=== PATIENT | male | born 1945 | race Caucasian/White ===

== ENCOUNTER 2017-08-10 20:41 | Inpatient (IN) | payer MEDICARE, OTHER ==
[~2017-08-10] VITALS: Ht 177.8 cm; Wt 69.9 kg
[~2017-08-10 20:41] MED LIST: AMLO10 PO; ATOR80TA PO; ENAL20TA81 PO; FISH1000 PO; HYDR-2768 PO; PREV10CA PO; VARE.5 PO; VITA-13 PO; VITA10002 PO; [UNRECOGNIZED DRUG - CODE] PO
[2017-08-10 21:41] LABS: AUTOMATED NEUTROPHIL # 10.8 TH/MM3 (1.8-7.7); BASOPHIL # 0.2 TH/MM3 (0-0.2); BASOPHIL % 1.2 % (0.0-2.0); EOSINOPHIL # 0.3 TH/MM3 (0-0.4); EOSINOPHIL % 2.2 % (0.0-4.0); HEMATOCRIT 41.1 % (39.0-51.0); HEMO FLAGS DIFF FINAL; LYMPH % 15.8 % (9.0-44.0); LYMPHOCYTE # 2.3 TH/MM3 (1.0-4.8); MEAN CELL VOLUME 92.1 FL (80.0-100.0); MEAN CORPUSCULAR HEMOGLOBIN 31.3 PG (27.0-34.0); MONO % 6.2 % (0.0-8.0); NEUT % 74.6 % (16.0-70.0); PLATELET COUNT 296 TH/MM3 (150-450); RED BLOOD COUNT 4.46 MIL/MM3 (4.50-5.90); RED CELL DISTRIBUTION WIDTH 12.8 % (11.6-17.2); WHITE BLOOD COUNT 14.5 TH/MM3 (4.0-11.0)
[2017-08-10 22:05] LABS: ANION GAP 9 MEQ/L (5-15); AST (GOT) 25 U/L (15-37); BICARBONATE 29.2 MEQ/L (21.0-32.0); BLOOD UREA NITROGEN 19 MG/DL (7-18); CHLORIDE 100 MEQ/L (98-107); GLOMERULAR FILTRATION RATE 73 ML/MIN (>89); POTASSIUM 3.4 MEQ/L (3.5-5.1); SODIUM (NA) 138 MEQ/L (136-145)
[2017-08-10 22:06] LABS: ALT (GPT) 48 U/L (12-78)
[2017-08-10 22:08] LABS: ALKALINE PHOSPHATASE 113 U/L (45-117); TOTAL BILIRUBIN ADULT 0.2 MG/DL (0.2-1.0)
[2017-08-10 23:47] LABS: BLOOD, URINE NEG (NEG); GLUCOSE,URINE NEG (NEG); KETONE, URINE NEG (NEG); NITRITE,URINE NEG (NEG); URINE COLOR LIGHT-YELLOW (YELLW/STRAW)
[2017-08-10 23:48] LABS: COMMENT (UR) CULT NOT INDICATED; CULTURE IF INDICATED CULT NOT INDICATED
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
[2017-08-11 07:30] VITALS: BP 190/102; PULSE 76; RESP 18; O2SAT 99
[2017-08-11] MEDS ORDERED: ENALAPRIL MALEATE 10 MG TAB PO ONE (08:15)
[2017-08-11 08:46] VITALS: BP 169/88; PULSE 83; RESP 18; TEMP 98.2; O2SAT 98
[2017-08-11 10:00] VITALS: BP 180/86; PULSE 76; RESP 18; O2SAT 99
[2017-08-11 14:00] VITALS: BP 178/81; PULSE 84; RESP 18; O2SAT 99
[2017-08-11 18:00] VITALS: BP 186/94; PULSE 79; RESP 18; O2SAT 98
[2017-08-11 19:57] VITALS: BP 162/84; PULSE 103; RESP 16; O2SAT 98
[2017-08-12] VITALS: BP 158/86; PULSE 87; RESP 14; O2SAT 98
[2017-08-12] MEDS ORDERED: ACETAMINOPHEN 325 MG TAB PO PRN (15:00)
[2017-08-12] MEDS ORDERED: LORazepam 0.5 MG TAB PO PRN (15:00)
[2017-08-12] MEDS ORDERED: ALUMINUM/MAGNESIUM/SIMETH 30 ML CUP PO PRN (15:00)
[2017-08-12] MEDS ORDERED: LORazepam 2 MG/ML VIAL IM PRN (15:00)
[2017-08-12] MEDS ORDERED: MAGNESIUM HYDROXIDE SUSP 30 ML CUP PO PRN (15:00)
[2017-08-12 15:30] VITALS: BP 174/79; PULSE 80; RESP 16; O2SAT 98
[2017-08-12] MEDS ORDERED: TRAZ100T6 PO (16:52)
[2017-08-12] MEDS ORDERED: ASPI81TA5 PO (16:52)
[2017-08-12] MEDS ORDERED: LISI40TA PO (16:52)
[2017-08-12] MEDS ORDERED: AMLO10TA2 PO (16:52)
[2017-08-12] MEDS ORDERED: HYDR25TA5 PO (16:52)
[2017-08-12] MEDS ORDERED: OLAN2.5T PO (16:52)
[2017-08-12] MEDS ORDERED: ATOR1TAB18 PO (16:52)
[2017-08-12] MEDS ORDERED: ZETI10TA5 PO (16:59)
[2017-08-12] MEDS ORDERED: VITA10002 PO (16:59)
[2017-08-12] MEDS ORDERED: VITA100018 PO (16:59)
[2017-08-12] MEDS ORDERED: DONE10TA7 PO (16:59)
[2017-08-12 18:02] VITALS: BP 172/98; PULSE 90; RESP 18; TEMP 97.2; O2SAT 97
[2017-08-12] MEDS: traZODone HCL 100 MG TAB PO SCH (23:02)
[2017-08-12] MEDS: LISINOPRIL 20 MG TAB PO SCH (23:02)
[2017-08-13 06:00] VITALS: BP 173/81; PULSE 77; RESP 18; TEMP 97.5; O2SAT 96
--- NOTE | 2017-08-13 08:46 | EKG ---
Date Performed: 08/12/2017 Time Performed: 17:02:36 PTAGE: 72 years EKG: Sinus rhythm MINIMAL ST DEPRESSION BORDERLINE ECG NO PREVIOUS TRACING DOCTOR: Christi Watson Interpretating Date/Time 08/13/2017 08:44:54
[2017-08-13] MEDS: CYANOCOBALAMIN 1,000 MCG TAB PO SCH (09:44)
[2017-08-13] MEDS: CHOLECALCIFEROL (VIT D3) 1000 UNIT TAB PO SCH (09:44)
[2017-08-13] MEDS: DONEPEZIL HCL 5 MG TAB PO SCH (09:44)
[2017-08-13] MEDS: HYDROCHLOROTHIAZIDE 25 MG TAB PO SCH (09:44)
[2017-08-13] MEDS: ASPIRIN 81 MG CHEW TAB PO SCH (09:44)
[2017-08-13] MEDS: EZETIMIBE 10 MG TAB PO SCH (09:54)
[2017-08-13] MEDS: ATORVASTATIN 80 MG TAB PO SCH (09:54)
[2017-08-13 10:26] LABS: ANION GAP 11 MEQ/L (5-15); BICARBONATE 26.2 MEQ/L (21.0-32.0); BLOOD UREA NITROGEN 21 MG/DL (7-18); CHLORIDE 103 MEQ/L (98-107); GLOMERULAR FILTRATION RATE 75 ML/MIN (>89); POTASSIUM 3.6 MEQ/L (3.5-5.1); SODIUM (NA) 140 MEQ/L (136-145)
[2017-08-13 10:52] LABS: HDL CHOLESTEROL 52.9 MG/DL (40.0-60.0); LDL CHOLESTEROL 103 MG/DL (0-99)
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
--- NOTE | 2017-08-13 14:19 | RADRPT ---
EXAM DATE/TIME: 08/13/2017 14:02 [facility] COMPARISON: No previous studies available for comparison. INDICATIONS : Altered mental status RADIATION DOSE: 56.35 CTDIvol (mGy) MEDICAL HISTORY : Seizures. Hypertension. Diabetes mellitus type 2. SURGICAL HISTORY : None. ENCOUNTER: Initial ACUITY: 1 day PAIN SCALE: 0/10 LOCATION: cranial TECHNIQUE: Multiple contiguous axial images were obtained of the head. Using automated exposure control and adj ustment of the mA and/or kV according to patient size, radiation dose was kept as low as reasonably a chievable to obtain optimal diagnostic quality images. DICOM format image data is available electro nically for review and comparison. FINDINGS: There is no evidence of acute cortical infarction, acute hemorrhage, mass effect or midline shift. Bi frontal atrophy is present. Cerebellar atrophy is also seen. CONCLUSION: 1. No evidence of acute intracranial pathology. No masses are identified. Cerebellar and frontal atro phy Sylvester Rodriguez MD on August 13, 2017 at 14:16 Board Certified Radiologist. This report was verified electronically.
[2017-08-13 16:17] LABS: HEMOGLOBIN A1b 2.1 %; HEMOGLOBIN Ao 84.6 %; HEMOGLOBIN LA1C 2.4 %; HEMOGLOBIN P3 5.2 %
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
[2017-08-13 18:45] VITALS: BP 139/65; PULSE 66; RESP 18; TEMP 97.8; O2SAT 98
[2017-08-13] MEDS: LISINOPRIL 20 MG TAB PO SCH (21:23)
[2017-08-13] MEDS: traZODone HCL 100 MG TAB PO SCH (21:23)
[2017-08-14 06:00] VITALS: BP 174/74; PULSE 57; RESP 18; TEMP 97.8; O2SAT 96
[2017-08-14] MEDS ORDERED: PNEUMOCOCCAL POLYVALENT INJ 25 MCG/0.5 ML SYR IM ONE (10:00)
[2017-08-14] MEDS: ASPIRIN 81 MG CHEW TAB PO SCH (10:42)
[2017-08-14] MEDS: DONEPEZIL HCL 5 MG TAB PO SCH (10:42)
[2017-08-14] MEDS: CYANOCOBALAMIN 1,000 MCG TAB PO SCH (10:42)
[2017-08-14] MEDS: EZETIMIBE 10 MG TAB PO SCH (10:42)
[2017-08-14] MEDS: CHOLECALCIFEROL (VIT D3) 1000 UNIT TAB PO SCH (10:42)
[2017-08-14] MEDS: HYDROCHLOROTHIAZIDE 25 MG TAB PO SCH (10:43)
[2017-08-14] MEDS: ATORVASTATIN 80 MG TAB PO SCH (10:43)
[2017-08-14 11:11] LABS: AUTOMATED NEUTROPHIL # 7.5 TH/MM3 (1.8-7.7); BASOPHIL # 0.1 TH/MM3 (0-0.2); BASOPHIL % 1.1 % (0.0-2.0); EOSINOPHIL # 0.4 TH/MM3 (0-0.4); EOSINOPHIL % 3.7 % (0.0-4.0); HEMATOCRIT 41.4 % (39.0-51.0); HEMO FLAGS DIFF FINAL; LYMPH % 18.3 % (9.0-44.0); MEAN CELL VOLUME 91.7 FL (80.0-100.0); MEAN CORPUSCULAR HEMOGLOBIN 31.1 PG (27.0-34.0); MEAN CORPUSCULAR HGB CONC 33.9 % (32.0-36.0); MONO % 9.8 % (0.0-8.0); NEUT % 67.1 % (16.0-70.0); PLATELET COUNT 314 TH/MM3 (150-450); RED BLOOD COUNT 4.51 MIL/MM3 (4.50-5.90); RED CELL DISTRIBUTION WIDTH 13.2 % (11.6-17.2); WHITE BLOOD COUNT 11.2 TH/MM3 (4.0-11.0)
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
--- NOTE | 2017-08-14 16:54 | PD.TTN ---
Patient Problems 1. Discharge planning 2. Medication compliance 3. Knowledge deficit 4. Lack of coping skills Progress Toward Goals Provider Present: Dr. Arnaldo Obregon Provider Input: Dr. Obregon's treatment team met to discuss patient's treatment plan, medication and discharge plan. Patient continues to be medication compliant. Patient will remain on unit until stablized. Nurse(s) Input: Patient's nurse Joanne reports patient doing well. Medication complaint, calm, cooperative, denies suicidal and homicidal ideation. Patient denies auditory and visual hallucination. Psychiatric Counselors Present: [facility] Input: Patient seen on unit. Patient presented calm, cooperative but constricted, pleasant, disorganized, affect blunted. Patient's speech was clear, disorganized. Patient is alert to date, person, place but has poor insight into his situation. Patient denies suicidal and homicidal ideation. Patient's speech was clear, and disorganized. Patient's long and short term memory appear to be affect. Patient's mood and affect appear to be congruent. Valeria Israel [facility] Aug 14, 2017 16:54
[2017-08-14 18:00] VITALS: BP 175/75; PULSE 68; RESP 17; TEMP 97.8; O2SAT 96
[2017-08-14] MEDS: LISINOPRIL 20 MG TAB PO SCH (21:23)
[2017-08-14] MEDS: traZODone HCL 100 MG TAB PO SCH (21:23)
[2017-08-15 06:08] VITALS: BP 125/60; PULSE 59; RESP 15; TEMP 98.2; O2SAT 94
[2017-08-15] MEDS: CHOLECALCIFEROL (VIT D3) 1000 UNIT TAB PO SCH (09:15)
[2017-08-15] MEDS: EZETIMIBE 10 MG TAB PO SCH (09:15)
[2017-08-15] MEDS: ASPIRIN 81 MG CHEW TAB PO SCH (09:15)
[2017-08-15] MEDS: ATORVASTATIN 80 MG TAB PO SCH (09:16)
[2017-08-15] MEDS: DONEPEZIL HCL 5 MG TAB PO SCH (09:16)
[2017-08-15] MEDS: HYDROCHLOROTHIAZIDE 25 MG TAB PO SCH (09:16)
[2017-08-15] MEDS: CYANOCOBALAMIN 1,000 MCG TAB PO SCH (09:16)
[2017-08-15 18:06] VITALS: BP 136/63; PULSE 56; RESP 16; TEMP 98.6; O2SAT 94
[2017-08-15] MEDS: traZODone HCL 100 MG TAB PO SCH (20:15)
[2017-08-15] MEDS: risperiDONE ODT 0.25 MG TAB PO SCH (20:15)
[2017-08-15] MEDS: LISINOPRIL 20 MG TAB PO SCH (20:15)
[2017-08-16 05:55] VITALS: BP 140/67; PULSE 55; RESP 17; TEMP 98.1
[2017-08-16] MEDS: HYDROCHLOROTHIAZIDE 25 MG TAB PO SCH (10:46)
[2017-08-16] MEDS: DONEPEZIL HCL 5 MG TAB PO SCH (10:47)
[2017-08-16] MEDS: CYANOCOBALAMIN 1,000 MCG TAB PO SCH (10:47)
[2017-08-16] MEDS: CHOLECALCIFEROL (VIT D3) 1000 UNIT TAB PO SCH (10:47)
[2017-08-16] MEDS: EZETIMIBE 10 MG TAB PO SCH (10:48)
[2017-08-16] MEDS: ATORVASTATIN 80 MG TAB PO SCH (10:48)
[2017-08-16] MEDS: ASPIRIN 81 MG CHEW TAB PO SCH (10:48)
[2017-08-16] MEDS: traZODone HCL 100 MG TAB PO SCH (20:28)
[2017-08-16] MEDS: risperiDONE ODT 0.25 MG TAB PO SCH (20:28)
[2017-08-16] MEDS: LISINOPRIL 20 MG TAB PO SCH (20:28)
[2017-08-17 06:00] VITALS: BP 116/59; PULSE 55; RESP 15; O2SAT 94
[2017-08-17] MEDS: HYDROCHLOROTHIAZIDE 25 MG TAB PO SCH (10:54)
[2017-08-17] MEDS: ATORVASTATIN 80 MG TAB PO SCH (10:54)
[2017-08-17] MEDS: CYANOCOBALAMIN 1,000 MCG TAB PO SCH (10:54)
[2017-08-17] MEDS: DONEPEZIL HCL 5 MG TAB PO SCH (10:55)
[2017-08-17] MEDS: CHOLECALCIFEROL (VIT D3) 1000 UNIT TAB PO SCH (10:55)
[2017-08-17] MEDS: ASPIRIN 81 MG CHEW TAB PO SCH (10:55)
[2017-08-17] MEDS: EZETIMIBE 10 MG TAB PO SCH (10:56)
[2017-08-17 18:23] VITALS: BP 130/61; PULSE 70; RESP 18; TEMP 98.2; O2SAT 95
[2017-08-17] MEDS: LISINOPRIL 20 MG TAB PO SCH (20:18)
[2017-08-17] MEDS: risperiDONE ODT 0.25 MG TAB PO SCH (20:19)
[2017-08-17] MEDS: traZODone HCL 100 MG TAB PO SCH (20:19)
[2017-08-18 06:19] VITALS: BP 123/60; PULSE 60; RESP 18; TEMP 97.6; O2SAT 97
[2017-08-18] MEDS: EZETIMIBE 10 MG TAB PO SCH (10:06)
[2017-08-18] MEDS: CHOLECALCIFEROL (VIT D3) 1000 UNIT TAB PO SCH (10:06)
[2017-08-18] MEDS: DONEPEZIL HCL 5 MG TAB PO SCH (10:06)
[2017-08-18] MEDS: CYANOCOBALAMIN 1,000 MCG TAB PO SCH (10:07)
[2017-08-18] MEDS: ATORVASTATIN 80 MG TAB PO SCH (10:07)
[2017-08-18] MEDS: HYDROCHLOROTHIAZIDE 25 MG TAB PO SCH (10:07)
[2017-08-18] MEDS: ASPIRIN 81 MG CHEW TAB PO SCH (10:07)
[2017-08-18 18:00] VITALS: BP 128/68; PULSE 60; RESP 17; TEMP 97.8; O2SAT 96
[2017-08-18 18:08] VITALS: BP 128/68; PULSE 60; RESP 17; TEMP 97.8; O2SAT 96
[2017-08-18] MEDS: traZODone HCL 100 MG TAB PO SCH (20:49)
[2017-08-18] MEDS: LISINOPRIL 20 MG TAB PO SCH (20:49)
[2017-08-18] MEDS: risperiDONE ODT 0.25 MG TAB PO SCH (20:49)
[2017-08-19 06:24] VITALS: BP 112/56; PULSE 53; RESP 17; TEMP 97.3
[2017-08-19] MEDS: EZETIMIBE 10 MG TAB PO SCH (09:10)
[2017-08-19] MEDS: HYDROCHLOROTHIAZIDE 25 MG TAB PO SCH (09:10)
[2017-08-19] MEDS: CYANOCOBALAMIN 1,000 MCG TAB PO SCH (09:10)
[2017-08-19] MEDS: ASPIRIN 81 MG CHEW TAB PO SCH (09:10)
[2017-08-19] MEDS: CHOLECALCIFEROL (VIT D3) 1000 UNIT TAB PO SCH (09:10)
[2017-08-19] MEDS: ATORVASTATIN 80 MG TAB PO SCH (09:11)
[2017-08-19] MEDS: DONEPEZIL HCL 5 MG TAB PO SCH (09:11)
[2017-08-19 18:00] VITALS: BP 152/69; PULSE 59; RESP 20; TEMP 97.5; O2SAT 96
[2017-08-19] MEDS: traZODone HCL 100 MG TAB PO SCH (20:45)
[2017-08-19] MEDS: LISINOPRIL 20 MG TAB PO SCH (20:46)
[2017-08-19] MEDS: risperiDONE ODT 0.25 MG TAB PO SCH (20:46)
[2017-08-19 21:00] VITALS: BP 131/65; PULSE 65; RESP 20
[2017-08-20 05:55] VITALS: BP 107/56; PULSE 55; RESP 17; TEMP 97; O2SAT 95
[2017-08-20] MEDS: ATORVASTATIN 80 MG TAB PO SCH (09:08)
[2017-08-20] MEDS: ASPIRIN 81 MG CHEW TAB PO SCH (09:08)
[2017-08-20] MEDS: CHOLECALCIFEROL (VIT D3) 1000 UNIT TAB PO SCH (09:08)
[2017-08-20] MEDS: DONEPEZIL HCL 5 MG TAB PO SCH (09:08)
[2017-08-20] MEDS: EZETIMIBE 10 MG TAB PO SCH (09:08)
[2017-08-20] MEDS: CYANOCOBALAMIN 1,000 MCG TAB PO SCH (09:09)
[2017-08-20] MEDS: HYDROCHLOROTHIAZIDE 25 MG TAB PO SCH (09:09)
[2017-08-20] MEDS ORDERED: TRAZ50TA12 PO (13:36)
[2017-08-20] MEDS ORDERED: LORA-392 PO (13:36)
[2017-08-20] MEDS ORDERED: ATOR1TAB18 PO (13:36)
[2017-08-20] MEDS ORDERED: ARIC5TAB2 PO (13:36)
[2017-08-20] MEDS ORDERED: AMLO10 PO (13:36)
[2017-08-20] MEDS ORDERED: LISI-515 PO (13:36)
[2017-08-20] MEDS ORDERED: ZETI10TA5 PO (13:36)
[2017-08-20] MEDS ORDERED: [UNRECOGNIZED DRUG - CODE] PO (13:36)
[2017-08-20] MEDS ORDERED: VITA1000 PO (13:36)
[2017-08-20] MEDS ORDERED: ASPI81CH25 PO (13:36)
[2017-08-20] MEDS ORDERED: VITA10002 PO (13:36)
[2017-08-20] MEDS ORDERED: HYDR25TA5 PO (13:36)
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
== END 2017-08-20 16:40 | DRG 884 ==
LOC: NEDAMB 20:41 → NEDA 08-12 14:52 → H250 08-12 17:38
PROVIDERS: ADMIT Psychiatry & Neurology Psychiatry; ATTEND Psychiatry & Neurology Psychiatry
DX: F03.91 Unspecified dementia, unspecified severity, with behavioral disturbance (principal); I10 Essential (primary) hypertension; R41.89 Other symptoms and signs involving cognitive functions and awareness; Z86.73 Personal history of transient ischemic attack (TIA), and cerebral infarction without residual deficits; E78.00 Pure hypercholesterolemia, unspecified; Z85.46 Personal history of malignant neoplasm of prostate; G47.00 Insomnia, unspecified; F41.9 Anxiety disorder, unspecified
CPT/HCPCS: 70450; 80048; 80053; 80061; 80307; 81001; 82306; 82607; 83036; 85025; 93005

== ENCOUNTER 2017-08-24 21:56 | Inpatient (IN) | payer MEDICARE, OTHER ==
[~2017-08-24] VITALS: Ht 177.8 cm; Wt 71.6 kg
[~2017-08-24 21:56] MED LIST changes: +AMLO10TA2 PO; +ARIC5TAB2 PO; +ASPI81CH25 PO; +ASPI81TA5 PO; +ATOR1TAB18 PO; -ATOR80TA PO; +DONE10TA7 PO; -ENAL20TA81 PO; -FISH1000 PO; -HYDR-2768 PO; +HYDR25TA5 PO; +LISI-515 PO; +LISI40TA PO; +LORA-392 PO; -PREV10CA PO; +TRAZ100T6 PO; +TRAZ50TA12 PO; -VARE.5 PO; -VITA-13 PO; +VITA1000 PO; +VITA100018 PO; +ZETI10TA5 PO; +[UNRECOGNIZED DRUG - CODE] PO; -[UNRECOGNIZED DRUG - CODE] PO
[2017-08-24 22:12] VITALS: BP 110/55; PULSE 72; RESP 14; O2SAT 96
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
[2017-08-24 22:42] LABS: AUTOMATED NEUTROPHIL # 7.1 TH/MM3 (1.8-7.7); BASOPHIL % 0.2 % (0.0-2.0); EOSINOPHIL # 0.4 TH/MM3 (0-0.4); EOSINOPHIL % 3.5 % (0.0-4.0); HEMATOCRIT 38.8 % (39.0-51.0); HEMO FLAGS DIFF FINAL; LYMPH % 23.3 % (9.0-44.0); LYMPHOCYTE # 2.6 TH/MM3 (1.0-4.8); MEAN CELL VOLUME 90.4 FL (80.0-100.0); MEAN CORPUSCULAR HEMOGLOBIN 30.6 PG (27.0-34.0); MEAN CORPUSCULAR HGB CONC 33.9 % (32.0-36.0); MONO % 10.6 % (0.0-8.0); NEUT % 62.4 % (16.0-70.0); PLATELET COUNT 345 TH/MM3 (150-450); RED BLOOD COUNT 4.29 MIL/MM3 (4.50-5.90); RED CELL DISTRIBUTION WIDTH 12.5 % (11.6-17.2); WHITE BLOOD COUNT 11.4 TH/MM3 (4.0-11.0)
[2017-08-24 23:01] LABS: ANION GAP 8 MEQ/L (5-15); AST (GOT) 17 U/L (15-37); BICARBONATE 26.7 MEQ/L (21.0-32.0); BLOOD UREA NITROGEN 15 MG/DL (7-18); CHLORIDE 103 MEQ/L (98-107); GLOMERULAR FILTRATION RATE 83 ML/MIN (>89); POTASSIUM 3.2 MEQ/L (3.5-5.1); SODIUM (NA) 138 MEQ/L (136-145)
[2017-08-24 23:02] LABS: ALT (GPT) 32 U/L (12-78)
[2017-08-24 23:03] LABS: ALCOHOL LESS THAN 3 MG/DL (0-5)
[2017-08-24 23:04] LABS: ALKALINE PHOSPHATASE 116 U/L (45-117); TOTAL BILIRUBIN ADULT 0.2 MG/DL (0.2-1.0)
[2017-08-24] MEDS ORDERED: POTASSIUM CHLORIDE 20 MEQ CONTROLLED RELEASE TAB PO ONE (23:30)
[2017-08-25 04:21] VITALS: PULSE 66; RESP 16; O2SAT 96
[2017-08-25] MEDS ORDERED: LORazepam 1 MG TAB PO PRN ×2 (06:45)
[2017-08-25] MEDS ORDERED: ACETAMINOPHEN 325 MG TAB PO PRN (06:45)
[2017-08-25] MEDS ORDERED: MAGNESIUM HYDROXIDE SUSP 30 ML CUP PO PRN (06:45)
[2017-08-25] MEDS ORDERED: ALUMINUM/MAGNESIUM/SIMETH 30 ML CUP PO PRN (06:45)
[2017-08-25] MEDS ORDERED: LORazepam 2 MG/ML VIAL IM PRN ×2 (06:45)
[2017-08-25 07:30] VITALS: BP 158/72; PULSE 62; TEMP 97.4
[2017-08-25] MEDS: EZETIMIBE 10 MG TAB PO SCH (09:00)
[2017-08-25] MEDS: ATORVASTATIN 80 MG TAB PO SCH (09:00)
[2017-08-25] MEDS: CHOLECALCIFEROL (VIT D3) 1000 UNIT TAB PO SCH (09:45)
[2017-08-25] MEDS: HYDROCHLOROTHIAZIDE 25 MG TAB PO SCH (09:45)
[2017-08-25] MEDS: DONEPEZIL HCL 5 MG TAB PO SCH (09:46)
[2017-08-25] MEDS: CYANOCOBALAMIN 1,000 MCG TAB PO SCH (09:46)
[2017-08-25] MEDS: ASPIRIN 81 MG CHEW TAB PO SCH (09:47)
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
[2017-08-25 19:39] VITALS: BP 145/70; PULSE 64; RESP 18; TEMP 98.7
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
[2017-08-25] MEDS: LISINOPRIL 20 MG TAB PO SCH (21:02)
[2017-08-25] MEDS: risperiDONE ODT 0.25 MG TAB PO SCH (21:02)
[2017-08-25] MEDS: traZODone HCL 100 MG TAB PO SCH (21:02)
[2017-08-26 05:45] VITALS: BP 125/62; PULSE 62; RESP 18; TEMP 98.3
[2017-08-26] MEDS: ASPIRIN 81 MG CHEW TAB PO SCH (08:01)
[2017-08-26] MEDS: ATORVASTATIN 80 MG TAB PO SCH (08:01)
[2017-08-26] MEDS: CHOLECALCIFEROL (VIT D3) 1000 UNIT TAB PO SCH (08:02)
[2017-08-26] MEDS: HYDROCHLOROTHIAZIDE 25 MG TAB PO SCH (08:03)
[2017-08-26] MEDS: DONEPEZIL HCL 5 MG TAB PO SCH (08:03)
[2017-08-26] MEDS: CYANOCOBALAMIN 1,000 MCG TAB PO SCH (08:03)
[2017-08-26] MEDS: EZETIMIBE 10 MG TAB PO SCH (08:08)
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
[2017-08-26 10:33] LABS: AUTOMATED NEUTROPHIL # 7.8 TH/MM3 (1.8-7.7); BASOPHIL # 0.1 TH/MM3 (0-0.2); BASOPHIL % 0.9 % (0.0-2.0); EOSINOPHIL # 0.3 TH/MM3 (0-0.4); EOSINOPHIL % 2.8 % (0.0-4.0); HEMATOCRIT 44.1 % (39.0-51.0); LYMPH % 19.2 % (9.0-44.0); MEAN CELL VOLUME 91.7 FL (80.0-100.0); MEAN CORPUSCULAR HEMOGLOBIN 30.1 PG (27.0-34.0); MEAN CORPUSCULAR HGB CONC 32.8 % (32.0-36.0); MONO % 3.2 % (0.0-8.0); NEUT % 73.9 % (16.0-70.0); PLATELET COUNT 284 TH/MM3 (150-450); RED BLOOD COUNT 4.81 MIL/MM3 (4.50-5.90); WHITE BLOOD COUNT 10.6 TH/MM3 (4.0-11.0)
[2017-08-26 10:34] LABS: HEMO FLAGS AUTO DIFF
[2017-08-26 10:46] LABS: ANION GAP 11 MEQ/L (5-15); BICARBONATE 26.8 MEQ/L (21.0-32.0); BLOOD UREA NITROGEN 20 MG/DL (7-18); CHLORIDE 101 MEQ/L (98-107); GLOMERULAR FILTRATION RATE 75 ML/MIN (>89); MAGNESIUM 1.9 MG/DL (1.5-2.5); SODIUM (NA) 139 MEQ/L (136-145)
[2017-08-26 10:47] LABS: POTASSIUM 3.4 MEQ/L (3.5-5.1)
[2017-08-26 10:54] LABS: HDL CHOLESTEROL 51.2 MG/DL (40.0-60.0); LDL CHOLESTEROL 85 MG/DL (0-99)
[2017-08-26 10:56] LABS: PLATELET ESTIMATE SMEAR NORMAL (NORMAL); PLATELET MORPHOLOGY CLUMPED (NORMAL); SCAN/DIFF AUTO DIFF CONFIRMED
[2017-08-26] MEDS ORDERED: POTASSIUM CHLORIDE 20 MEQ CONTROLLED RELEASE TAB PO ONE (11:30)
[2017-08-26 17:02] LABS: HEMOGLOBIN A1a 1.1 %; HEMOGLOBIN A1b 2.1 %; HEMOGLOBIN Ao 84.2 %; HEMOGLOBIN LA1C 2.4 %; HEMOGLOBIN P3 4.1 %
[2017-08-26 18:00] VITALS: BP 137/63; PULSE 98; RESP 16; TEMP 97.8; O2SAT 98
[2017-08-26] MEDS: traZODone HCL 100 MG TAB PO SCH (21:28)
[2017-08-26] MEDS: LISINOPRIL 20 MG TAB PO SCH (21:28)
[2017-08-26] MEDS: risperiDONE ODT 0.25 MG TAB PO SCH (21:29)
[2017-08-27 06:00] VITALS: BP 115/66; PULSE 57; RESP 17; TEMP 97.6; O2SAT 94
[2017-08-27] MEDS: EZETIMIBE 10 MG TAB PO SCH (09:00)
[2017-08-27] MEDS: DONEPEZIL HCL 5 MG TAB PO SCH (09:10)
[2017-08-27] MEDS: HYDROCHLOROTHIAZIDE 25 MG TAB PO SCH (09:11)
[2017-08-27] MEDS: ATORVASTATIN 80 MG TAB PO SCH (09:11)
[2017-08-27] MEDS: CYANOCOBALAMIN 1,000 MCG TAB PO SCH (09:11)
[2017-08-27] MEDS: CHOLECALCIFEROL (VIT D3) 1000 UNIT TAB PO SCH (09:11)
[2017-08-27] MEDS: ASPIRIN 81 MG CHEW TAB PO SCH (09:12)
[2017-08-27 18:00] VITALS: BP 134/81; PULSE 65; RESP 16; TEMP 96.2; O2SAT 92
[2017-08-27] MEDS: risperiDONE ODT 0.25 MG TAB PO SCH (21:00)
[2017-08-27] MEDS: traZODone HCL 100 MG TAB PO SCH (21:17)
[2017-08-27] MEDS: LISINOPRIL 20 MG TAB PO SCH (21:18)
[2017-08-28 05:51] VITALS: BP 108/53; PULSE 60; RESP 19; TEMP 97.4; O2SAT 96
[2017-08-28] MEDS: ATORVASTATIN 80 MG TAB PO SCH (09:00)
[2017-08-28] MEDS: ASPIRIN 81 MG CHEW TAB PO SCH (09:00)
[2017-08-28] MEDS: HYDROCHLOROTHIAZIDE 25 MG TAB PO SCH (09:00)
[2017-08-28] MEDS: DONEPEZIL HCL 5 MG TAB PO SCH (09:00)
[2017-08-28] MEDS: CYANOCOBALAMIN 1,000 MCG TAB PO SCH (09:00)
[2017-08-28] MEDS: EZETIMIBE 10 MG TAB PO SCH (09:00)
[2017-08-28] MEDS: CHOLECALCIFEROL (VIT D3) 1000 UNIT TAB PO SCH (09:00)
[2017-08-28] MEDS ORDERED: LORA-392 PO (14:04)
[2017-08-28] MEDS ORDERED: [UNRECOGNIZED DRUG - CODE] PO (14:04)
[2017-08-28] MEDS ORDERED: ASPI81CH25 PO (14:04)
[2017-08-28] MEDS ORDERED: VITA10002 PO (14:04)
[2017-08-28] MEDS ORDERED: HYDR25TA5 PO (14:04)
[2017-08-28] MEDS ORDERED: ATOR1TAB18 PO (14:04)
[2017-08-28] MEDS ORDERED: ZETI10TA5 PO (14:04)
[2017-08-28] MEDS ORDERED: AMLO10 PO (14:04)
[2017-08-28] MEDS ORDERED: VITA1000 PO (14:04)
[2017-08-28] MEDS ORDERED: LISI-515 PO (14:04)
[2017-08-28] MEDS ORDERED: ARIC5TAB2 PO (14:04)
== END 2017-08-28 16:20 | DRG 884 ==
LOC: NEPD 21:56 → NEDA 08-25 06:37 → H250 08-25 07:30
PROVIDERS: ADMIT Psychiatry & Neurology Psychiatry; ATTEND Psychiatry & Neurology Psychiatry
DX: F03.91 Unspecified dementia, unspecified severity, with behavioral disturbance (principal); I10 Essential (primary) hypertension; F10.10 Alcohol abuse, uncomplicated; E78.5 Hyperlipidemia, unspecified; R41.89 Other symptoms and signs involving cognitive functions and awareness; E87.6 Hypokalemia; Z86.73 Personal history of transient ischemic attack (TIA), and cerebral infarction without residual deficits; Z91.83 Wandering in diseases classified elsewhere; Z85.46 Personal history of malignant neoplasm of prostate
CPT/HCPCS: 80048; 80053; 80061; 80307; 83036; 83735; 85025